=== PATIENT | female | born 1995 | race Caucasian/White ===

== ENCOUNTER 2017-01-27 23:08 | Emergency (ER) | payer OTHER ==
[2017-01-27] MEDS ORDERED: OFLOXACIN 0.3% OTIC SOLUTION 5ML BOTTLE. ONE (23:30)
== END 2017-01-28 00:30 ==
LOC: ER 23:08
DX: H60.93 Unspecified otitis externa, bilateral (principal)
CPT/HCPCS: 99282

== ENCOUNTER 2017-02-04 22:34 | Emergency (ER) | payer OTHER ==
[~2017-02-04] VITALS: Ht 162.6 cm; Wt 87.5 kg
[2017-02-04 22:40] VITALS: BP 122/66
[2017-02-04] MEDS ORDERED: OFLO5DRO7 OT (23:09)
[2017-02-04] MEDS ORDERED: HYDR-2678 PO (23:21)
[2017-02-04] MEDS ORDERED: AMOX1TAB61 PO (23:21)
[2017-02-04] MEDS ORDERED: NAPR500T PO (23:21)
--- NOTE | 2017-02-04 23:21 | PHYS DOC ---
Adult General Chief Complaint Chief Complaint: HEAD INJURY/TRAUMA HPI HPI He is a pleasant 22-year-old female who is presently being treated for bilateral otitis externa with topical Omnicef who while at work tonight slipped and hit her head left posterior ear on the edge of a door knob. There is no loss of consciousness no nausea no vomiting no focal neurologic deficits no change in mental status patient's only complaint is a mild headache with pain over the ear and continued fullness in her ears despite being treated for otitis externa. At this point time she wanted to make sure she was okay either to stay home or go back to work as they're worried she had a concussion. She denies any neck pain denies any numbness and tingling in any of her extremities and is any change in vision problems finding words or oral injury. Review of Systems Review of Systems Constitutional: Denies fever or chills [] Eyes: Denies change in visual acuity, redness, or eye pain [] HENT: Complains of bilateral ear pain that does not have any drainage or hearing loss Respiratory: Denies cough or shortness of breath [] Cardiovascular: No additional information not addressed in HPI [] GI: Denies abdominal pain, nausea, vomiting, bloody stools or diarrhea [] : Denies dysuria or hematuria [] Musculoskeletal: Denies back pain or joint pain [] Integument: Denies rash or skin lesions [] Neurologic: Patient leads a mild headache without focal weakness numbness or tingling Endocrine: Denies polyuria or polydipsia [] Allergies Allergies Allergies Coded Allergies Type Severity Reaction Last Updated Verified No Known Drug Allergies 02/04/17 No Physical Exam Physical Exam Constitutional: Well developed, well nourished, uncomfortable and in pain or nontoxic in appearance. HENT: Normocephalic, small contusion posterior to the left external pinna no obvious signs of fracture. No raccoon sign no blood behind the tympanic membrane , no midline tenderness over the neck oropharynx is clear bilateral TMs are bulging and red there is minimal erythema to the external canals there is no debris in the external canals of each ear. Patient has no facial swelling Eyes: PERRLA, EOMI, conjunctiva normal, no discharge. [] Neck: Normal range of motion, no tenderness, supple, no stridor. [] Cardiovascular:Heart rate regular rhythm, no murmur [] Lungs & Thorax: Bilateral breath sounds clear to auscultation [] Skin: Warm, dry, no erythema, or contusion noted to the inferior posterior portion of the mastoid on the left Back: No tenderness, no CVA tenderness. [] Neurologic: Alert and oriented X 3, normal motor function, normal sensory function, no focal deficits noted. [] Psychologic: Affect normal, judgement normal, mood normal. [] EKG EKG [] Radiology/Procedures Radiology/Procedures [] Course & Med Decision Making Course & Med Decision Making Pertinent Labs and Imaging studies reviewed. (See chart for details) [Clearly has bilateral otitis media without evidence of otitis externa at this time. She has a small contusion posterior pinna over the mastoid fall with no obvious signs of basilar skull fracture. Patient probably did not suffer from a concussion but given soft tissue trauma I will offer pain medications. Impression: Bilateral otitis media, scalp contusion. Disposition: Discharged home follow up with her primary care doctor or sick call in 24 hours. Discharged with Augmentin, ibuprofen, Lortab.] Dragon Disclaimer Dragon Disclaimer This chart was dictated in whole or in part using Voice Recognition software in a busy, high-work load, and often noisy Emergency Department environment. It may contain unintended and wholly unrecognized errors or omissions. Departure Departure: Impression: Primary Impression: Contusion Additional Impression: Otitis media Disposition: 01 HOME, SELF-CARE Condition: IMPROVED Referrals: MARIPOSA MENDOZA MD (PCP) Patient Instructions: Contusion, Head Injury, Adult, Otitis Media, Adult Additional Instructions: This return for any new focal neurologic deficits, continued headache despite treatment, decreased hearing or drainage. Ears despite treatment or Any questions or concerns. Please follow-up with your sick call in 24-48 hours if symptoms are not improved. Scripts Naproxen (NAPROSYN) 500 Mg Tablet 1 TAB PO BID, #10 TAB 1 Refill Prov: CURRY ROBBINS MD 02/04/17 Hydrocodone/Acetaminophen (Lortab 5-325 mg Tablet) 1 Each Tablet 1 TAB PO PRN Q6HRS Y for PAIN, #10 TAB 0 Refills Prov: CURRY ROBBINS MD 02/04/17 Amoxicillin/Potassium Clav (AUGMENTIN 875-125 TABLET) 1 Each Tablet 1 TAB PO BID, #20 TAB Prov: CURRY ROBBINS MD 02/04/17 Problem Qualifiers CURRY ROBBINS MD February 04, 2017 23:21
[2017-02-05] MEDS ORDERED: AMOXICILLIN/K CLAV 875/125MG TABLET. PO ONE
[2017-02-05] MEDS ORDERED: HYDROcodone/APAP 5/325MG 1 TAB TABLET PO ONE
== END 2017-02-04 23:35 | disposition home or self-care (01) ==
LOC: ER 22:34
DX: S00.03XA Contusion of scalp, initial encounter (principal); H66.93 Otitis media, unspecified, bilateral; W01.198A Fall on same level from slipping, tripping and stumbling with subsequent striking against other object, initial encounter; Y93.89 Activity, other specified; Y99.8 Other external cause status; Y92.89 Other specified places as the place of occurrence of the external cause
CPT/HCPCS: 99283; 99284

== ENCOUNTER 2017-07-21 22:38 | Emergency (ER) | payer OTHER ==
[~2017-07-21] VITALS: Ht 162.6 cm; Wt 84.4 kg
[~2017-07-21 22:38] MED LIST: AMOX1TAB61 PO; HYDR-2678 PO; NAPR500T PO; OFLO5DRO7 OT
[2017-07-21 22:52] VITALS: BP 122/76
--- NOTE | 2017-07-22 00:18 | ED.ADGEN ---
Past History Past Medical History: No Pertinent History Past Surgical History: No Surgical History Alcohol Use: None Drug Use: None Adult General Chief Complaint Chief Complaint ".. I got pink eye that will not go away'".. HPI HPI Patient is a 22 year old female who presents with above hx and complaints of Rt eye infection. Pt. has been on 1 week of eye drops started at [facility]. Pt. has been on Polymyin and Trimethoprim qtts and Ketotifen qtts. Pt. reports no improvement. Persistent conjunctiva injection in right eye. Patient does have some findings of scleritis with some very min. Limbus injection at approximately 10:00 in Rt eye. No findings of foreign body. Corneas clear. Fundus is grossly benign. No obvious cell anterior chamber. No significant visual change by Eye chart. Pupils equal react to light. Normal tracking extraocular muscle movements. Irises are responsive to consensual light . No photophobia . No history of trauma. No history of travel. No history of immunosuppression. No history: Collagen Vascular diseases. Patient works on the [employer] at [employer]. Patient has not yet followed with ophthalmology at [facility]. Review of Systems Review of Systems Constitutional: Denies fever or chills [] Eyes: Denies change in visual acuity. Complaints of persistent redness, injection conjunctiva right eye HENT: Denies nasal congestion or sore throat [] Respiratory: Denies cough or shortness of breath [] Cardiovascular: No additional information not addressed in HPI [] GI: Denies abdominal pain, nausea, vomiting, bloody stools or diarrhea [] : Denies dysuria or hematuria [] Musculoskeletal: Denies back pain or joint pain [] Integument: Denies rash or skin lesions [] Neurologic: Denies headache, focal weakness or sensory changes [] Endocrine: Denies polyuria or polydipsia [] Family History Family History Noncontributory Current Medications Current Medications Current Medications Medications (Trade) Dose Ordered Sig/Sugey Start Time Stop Time Status Last Admin Dose Admin Cyclopentolate HCl (Cyclogyl) 1 drop 1X ONCE 07/22/17 00:45 07/22/17 00:46 DC 07/22/17 02:27 1 DROP Erythromycin (Romycin) 0.25 inch 1X ONCE 07/22/17 00:45 07/22/17 00:46 DC 07/22/17 00:27 0.25 INCH Fluorescein Sodium (Ful-Inna 1mg) 1 strip 1X ONCE 07/22/17 00:45 07/22/17 00:46 DC 07/22/17 02:27 1 STRIP Tetracaine HCl (Tetracaine) 2 drop 1X ONCE 07/22/17 00:45 07/22/17 00:46 DC 07/22/17 00:27 2 DROP See nursing for home meds Allergies Allergies Allergies Coded Allergies Type Severity Reaction Last Updated Verified No Known Drug Allergies 02/04/17 No Physical Exam Physical Exam Constitutional: Well developed, well nourished, mild distress, non-toxic appearance. [] HENT: Normocephalic, atraumatic, bilateral external ears normal, oropharynx moist, no oral exudates, nose normal. [] Eyes: PERRLA, EOMI, conjunctiva injected as per history of present illness, no discharge. [] Neck: Normal range of motion, no tenderness, supple, no stridor. [] Cardiovascular:Heart rate regular rhythm, no murmur [] Lungs & Thorax: Bilateral breath sounds clear to auscultation [] Abdomen: Bowel sounds normal, soft, no tenderness, no masses, no pulsatile masses. [] Skin: Warm, dry, no erythema, no rash. [] Back: No tenderness, no CVA tenderness. [] Extremities: No tenderness, no cyanosis, no clubbing, ROM intact, no edema. [] Neurologic: Alert and oriented X 3, normal motor function, normal sensory function, no focal deficits noted. [] Psychologic: Affect normal, judgement normal, mood normal. [] Current Patient Data Vital Signs Vital Signs Date Time Temp Pulse Resp B/P (MAP) Pulse Ox O2 Delivery O2 Flow Rate FiO2 07/21/17 22:52 98.5 87 16 99 EKG EKG [] Radiology/Procedures Radiology/Procedures [] Course & Med Decision Making Course & Med Decision Making Pertinent Labs and Imaging studies reviewed. (See chart for details). She had very small mount of erythromycin ointment 4 times a day until follow-up with ophthalmology at [facility] on Monday. Patient to continue current antibiotics . Return if any concerns. [] Final Impression Final Impression 1. Rt eye Conjunctivitis[] 2. Scleritis Problems: Dragon Disclaimer Dragon Disclaimer This electronic medical record was generated, in whole or in part, using a voice recognition dictation system. NOLBERTO MORENO MD Jul 22, 2017 00:17
[2017-07-22] MEDS ORDERED: FLUORESCEIN 1MG EYE STRIP. OD ONE (00:45)
[2017-07-22] MEDS ORDERED: ERYTHROMYCIN 0.5% OPHTH OINTMENT 1GM TUBE. OS ONE (00:45)
[2017-07-22] MEDS ORDERED: TETRACAINE 0.5% OPHTH SOLUTION 4ML BOTTLE. OD ONE (00:45)
[2017-07-22] MEDS ORDERED: CYCLOPENTOLATE 1% OPTH SOLUTION 2ML BOTTLE. OD ONE (00:45)
== END 2017-07-22 03:30 | disposition home or self-care (01) ==
LOC: ER 22:38
DX: H10.9 Unspecified conjunctivitis (principal); H15.001 Unspecified scleritis, right eye
CPT/HCPCS: 99284